=== PATIENT | male | born 1975 | race Caucasian/White ===

== ENCOUNTER 2024-02-12 00:27 | Emergency (ER) | payer OTHER ==
[~2024-02-12] VITALS: Ht 167.6 cm; Wt 75.0 kg
[2024-02-12 00:47] VITALS: TEMP 97.7
[2024-02-12] MEDS: ACETAMINOPHEN 500 MG TABLET PO ONE (03:11)
[2024-02-12] MEDS: PERTUSS(ACELL),DIPH,TET/PF 0.5 ML SYRINGE [ADULT] IM. ONE (03:13)
[2024-02-12 05:16] VITALS: BP 133/74; PULSE 72; RESP 18; O2SAT 96
== END 2024-02-12 05:33 | disposition home or self-care (01) ==
LOC: EMS 00:27
DX: S00.83XA Contusion of other part of head, initial encounter (principal); Y04.0XXA Assault by unarmed brawl or fight, initial encounter; F17.210 Nicotine dependence, cigarettes, uncomplicated; Y93.89 Activity, other specified; Y92.89 Other specified places as the place of occurrence of the external cause; Y99.8 Other external cause status
CPT/HCPCS: 70450; 70486; 90471; 90715; 99285